=== PATIENT | male | born 1955 | race Caucasian/White ===

== ENCOUNTER 2021-07-30 13:34 | Emergency (ER) | payer MEDICARE ==
[~2021-07-30] VITALS: Ht 185.4 cm; Wt 86.2 kg
[~2021-07-30 13:34] MED LIST: ASCORBIC ACID500 MG PO; ASPIRIN EC81 MG PO; BICALUTAMIDE50 MG PO; CERTAGEN1 EACH PO; FISH OIL 1,2001 EAC2 PO; LIPITOR40 MG PO
[2021-07-30 14:22] LABS: BASOPHIL 0.3 % (0-2); EOSINOPHIL 1.3 % (0-7); HGB 14.6 g/dl (13.2-18.0); MCHC 34.8 g/dL (32.0-36.0); MONOCYTE 9.7 % (0-12); MPV 10.1 fL (6.0-9.5); NEUTROPHIL 76.2 % (41-80); NRBC 0; PLT 181 K/uL (150-400); RBC 4.42 M/uL (4.70-6.00); RDW 12.4 % (11.5-14.0); WBC 9.5 K/uL (4.0-10.5)
[2021-07-30 14:34] LABS: ALBUMIN 3.5 g/dL (3.4-5.0); BILIRUBIN - TOTAL 0.4 mg/dL (0.2-1.0); BUN/CREAT RATIO (CALC) 11.3 RATIO; CREATININE 1.06 mg/dL (0.67-1.17); GLOBULIN (CALCULATION) 3.7 g/dL; POTASSIUM 4.5 mmol/L (3.5-5.1); TOTAL PROTEIN 7.2 g/dL (6.4-8.2)
[2021-07-30] MEDS ORDERED: TESSALON PERLE100 MG PO (16:11)
[2021-07-30] MEDS ORDERED: NORCO 5-325 TA1 EACH PO (16:11)
[2021-07-30] MEDS ORDERED: ZOFRAN4 M1 PO (16:13)
== END 2021-07-30 16:44 | disposition home or self-care (01) ==
LOC: FER 13:34
PROVIDERS: Nurse Practitioner Family
DX: R11.10 Vomiting, unspecified (principal); R52 Pain, unspecified; I10 Essential (primary) hypertension; Z88.8 Allergy status to other drugs, medicaments and biological substances
CPT/HCPCS: 36415; 80053; 85025; J1885; J2405; J7030

== ENCOUNTER 2021-09-09 12:31 | Inpatient (IN) | payer MEDICARE, OTHER ==
[~2021-09-09] VITALS: Ht 183 cm; Wt 73.1 kg
[~2021-09-09 12:31] MED LIST changes: +NORCO 5-325 TA1 EACH PO; +TESSALON PERLE100 MG PO; +ZOFRAN4 M1 PO
[2021-09-09 15:33] LABS: BASOPHIL 0.4 % (0-2); EOSINOPHIL 0.1 % (0-7); HCT 43.3 % (42.0-52.0); HGB 14.5 g/dl (13.2-18.0); LYMPHOCYTE 8.4 % (15-48); MCH 32.1 pg (25.0-31.0); MCHC 33.5 g/dL (32.0-36.0); MCV 95.8 fL (78.0-100.0); MONOCYTE 8.7 % (0-12); MPV 10.9 fL (6.0-9.5); NEUTROPHIL 81.3 % (41-80); NRBC 0; PLT 177 K/uL (150-400); RBC 4.52 M/uL (4.70-6.00); RDW 13.1 % (11.5-14.0); WBC 16.5 K/uL (4.0-10.5)
[2021-09-09 15:41] LABS: INR 1.44 (0.9-1.2); PROTHROMBIN TIME 16.8 SECONDS (11.8-13.4)
[2021-09-09 15:42] LABS: PTT 38.5 SECONDS (24.4-34.7)
[2021-09-09 17:32] LABS: BILIRUBIN NEGATIVE (NEGATIVE); BLOOD NEGATIVE Ery/uL (NEGATIVE); CLARITY CLEAR (CLEAR); COLOR YELLOW (YELLOW); GLUCOSE (U) NORMAL (NORMAL); LEUKOCYTES NEGATIVE Leu/uL (NEGATIVE); NITRITE NEGATIVE (NEGATIVE); PROTEIN NEGATIVE (NEGATIVE); SPECIFIC GRAVITY >=1.030 (1.001-1.030); UROBILINOGEN 0.2 mg/dL (0.2-1.0); pH 5.5 (5.0-9.0)
[2021-09-09 18:02] LABS: LACTIC ACID 2.6 mmol/L (0.4-1.9)
[2021-09-09 19:21] LABS: CREATININE 1.1 mg/dL (0.67-1.17)
[2021-09-09 19:22] LABS: ALBUMIN 3.1 g/dL (3.4-5.0); BILIRUBIN - TOTAL 0.6 mg/dL (0.2-1.0); GLOBULIN (CALCULATION) 3.1 g/dL; TOTAL PROTEIN 6.2 g/dL (6.4-8.2)
[2021-09-09] MEDS ORDERED: GABAPENTIN300 MG PO (22:42)
[2021-09-09] MEDS ORDERED: PRINIVIL10 MG PO (22:46)
[2021-09-09] MEDS ORDERED: ATARAX25 MG PO (22:46)
[2021-09-09] MEDS ORDERED: LUPRON DEPOT45 MG IM/IV (22:48)
[2021-09-09] MEDS ORDERED: SKELAXIN800 MG PO (22:48)
[2021-09-09] MEDS ORDERED: OXY-IR 5MG5 MG PO (22:49)
[2021-09-09] MEDS ORDERED: ELIQUIS5 MG PO ×2 (22:51→22:53)
[2021-09-09] MEDS ORDERED: DOXYCYCLINE HY100 MG PO (22:53)
[2021-09-10 06:13] LABS: BASOPHIL 0.3 % (0-2); EOSINOPHIL 0.6 % (0-7); HCT 35.1 % (42.0-52.0); HGB 11.9 g/dl (13.2-18.0); LYMPHOCYTE 11.2 % (15-48); MCH 32.2 pg (25.0-31.0); MCHC 33.9 g/dL (32.0-36.0); MCV 94.9 fL (78.0-100.0); MONOCYTE 10.8 % (0-12); MPV 10.3 fL (6.0-9.5); NEUTROPHIL 76.2 % (41-80); NRBC 0; PLT 107 K/uL (150-400); RDW 12.9 % (11.5-14.0); WBC 11.3 K/uL (4.0-10.5)
[2021-09-10 06:44] LABS: BUN/CREAT RATIO (CALC) 25.5 RATIO; CREATININE 1.02 mg/dL (0.67-1.17); POTASSIUM 4.8 mmol/L (3.5-5.1)
--- NOTE | 2021-09-10 16:17 | NUR ---
09/10/21 Mr. Velazquez lives at home with his spouse. He had one son who has pasted away. Mr. Velazquez does not use any DME. Pt is currently on . He was dx with prostate cancer 1.5 weeks ago and [facility]. Mr. Velazquez was educated to sources of transportation to his treatment and the [facility]. - Please monitor for home 02 needs.
[2021-09-12 06:56] LABS: BASOPHIL 0.2 % (0-2); EOSINOPHIL 0.6 % (0-7); HCT 35.9 % (42.0-52.0); HGB 11.6 g/dl (13.2-18.0); LYMPHOCYTE 10.5 % (15-48); MCHC 32.3 g/dL (32.0-36.0); MONOCYTE 8.9 % (0-12); MPV 10.9 fL (6.0-9.5); NEUTROPHIL 79.1 % (41-80); NRBC 0; PLT 94 K/uL (150-400); RBC 3.52 M/uL (4.70-6.00); RDW 13.2 % (11.5-14.0); WBC 12.3 K/uL (4.0-10.5)
[2021-09-12 07:11] LABS: BUN/CREAT RATIO (CALC) 15.2 RATIO; CREATININE 1.05 mg/dL (0.67-1.17); POTASSIUM 4.6 mmol/L (3.5-5.1)
--- NOTE | 2021-09-12 18:59 | NUR ---
MESSAGE LEFT WITH DR GRANADOS'S OFFICE ABOUT CONSULT
[2021-09-14 07:28] LABS: BASOPHIL 0.3 % (0-2); EOSINOPHIL 0.6 % (0-7); HCT 36.1 % (42.0-52.0); HGB 11.9 g/dl (13.2-18.0); LYMPHOCYTE 7.8 % (15-48); MCH 31.7 pg (25.0-31.0); MONOCYTE 8.2 % (0-12); MPV 10.8 fL (6.0-9.5); NEUTROPHIL 82.1 % (41-80); NRBC 0; PLT 98 K/uL (150-400); RBC 3.75 M/uL (4.70-6.00); RDW 13.1 % (11.5-14.0); WBC 14.5 K/uL (4.0-10.5)
[2021-09-14 07:29] LABS: MCV 96.3 fL (78.0-100.0)
[2021-09-14 08:04] LABS: BUN/CREAT RATIO (CALC) 15.6 RATIO; CREATININE 0.96 mg/dL (0.67-1.17); POTASSIUM 4.7 mmol/L (3.5-5.1)
--- NOTE | 2021-09-14 17:52 | NUR ---
09/14/2021 A referral was made to [facility] per patient choice. [facility] has recommended SNF. Will have further conversation with patient re: his choices. SNFs will not accept patients receiving chemo or radiation.
[2021-09-15 08:18] LABS: BASOPHIL 0.2 % (0-2); EOSINOPHIL 0.4 % (0-7); HCT 37.7 % (42.0-52.0); HGB 12.5 g/dl (13.2-18.0); LYMPHOCYTE 7.7 % (15-48); MCH 31.6 pg (25.0-31.0); MCHC 33.2 g/dL (32.0-36.0); MCV 95.2 fL (78.0-100.0); MONOCYTE 9.4 % (0-12); MPV 11.3 fL (6.0-9.5); NEUTROPHIL 81.5 % (41-80); NRBC 0; RBC 3.96 M/uL (4.70-6.00); RDW 13.1 % (11.5-14.0); WBC 14.8 K/uL (4.0-10.5)
[2021-09-15 08:19] LABS: PLT 79 K/uL (150-400)
[2021-09-15 09:39] LABS: CREATININE 0.94 mg/dL (0.67-1.17); POTASSIUM 4.7 mmol/L (3.5-5.1)
[2021-09-15 16:03] LABS: HCT 38.3 % (42.0-52.0); HGB 12.9 g/dl (13.2-18.0); MCH 32.2 pg (25.0-31.0); MCHC 33.7 g/dL (32.0-36.0); MCV 95.5 fL (78.0-100.0); MPV 11.4 fL (6.0-9.5); RBC 4.01 M/uL (4.70-6.00); RDW 13.2 % (11.5-14.0); WBC 15.8 K/uL (4.0-10.5)
[2021-09-16 07:54] LABS: BASOPHIL 0.2 % (0-2); EOSINOPHIL 0.1 % (0-7); HCT 40.9 % (42.0-52.0); HGB 13.5 g/dl (13.2-18.0); LYMPHOCYTE 6.6 % (15-48); MCH 31.9 pg (25.0-31.0); MCV 96.7 fL (78.0-100.0); MONOCYTE 9.6 % (0-12); MPV 11.1 fL (6.0-9.5); NEUTROPHIL 82.6 % (41-80); NRBC 0; PLT 94 K/uL (150-400); RBC 4.23 M/uL (4.70-6.00); RDW 13.2 % (11.5-14.0)
[2021-09-16 08:20] LABS: ALBUMIN 2.7 g/dL (3.4-5.0); BILIRUBIN - TOTAL 0.8 mg/dL (0.2-1.0); BUN/CREAT RATIO (CALC) 18.8 RATIO; CREATININE 1.01 mg/dL (0.67-1.17); GLOBULIN (CALCULATION) 3.9 g/dL; POTASSIUM 4.8 mmol/L (3.5-5.1); TOTAL PROTEIN 6.6 g/dL (6.4-8.2)
[2021-09-17 05:58] LABS: BASOPHIL 0.2 % (0-2); EOSINOPHIL 0.2 % (0-7); HCT 38.8 % (42.0-52.0); HGB 12.6 g/dl (13.2-18.0); LYMPHOCYTE 6.5 % (15-48); MCH 31.3 pg (25.0-31.0); MCHC 32.5 g/dL (32.0-36.0); MCV 96.5 fL (78.0-100.0); MONOCYTE 8.1 % (0-12); MPV 10.3 fL (6.0-9.5); NEUTROPHIL 84.2 % (41-80); NRBC 0; PLT 101 K/uL (150-400); RBC 4.02 M/uL (4.70-6.00); RDW 13.2 % (11.5-14.0); WBC 15.4 K/uL (4.0-10.5)
[2021-09-17 06:20] LABS: BUN/CREAT RATIO (CALC) 25.3 RATIO; CREATININE 0.91 mg/dL (0.67-1.17); POTASSIUM 4.4 mmol/L (3.5-5.1)
--- NOTE | 2021-09-17 15:17 | NUR ---
09/17 Patient has experienced a CVA. He declined a feeding tube per Dr. Hinton on 09/16. Per Dr. Anderson's order, a referral was made to Hospice. - Hospice will contact patient's sister, Page Pelletier, . Ms. Pelletier will include patient's spouse Otilia Velazquez in the consultation with Hospice and decision making. - Report given to Dr. Anderson.
[2021-09-18 05:56] LABS: HCT 35.9 % (42.0-52.0); HGB 11.7 g/dl (13.2-18.0); MCH 31.9 pg (25.0-31.0); MCHC 32.6 g/dL (32.0-36.0); MCV 97.8 fL (78.0-100.0); MPV 11.1 fL (6.0-9.5); RBC 3.67 M/uL (4.70-6.00); RDW 13.2 % (11.5-14.0); WBC 12.8 K/uL (4.0-10.5)
[2021-09-18 06:13] LABS: BUN/CREAT RATIO (CALC) 28.6 RATIO; CREATININE 0.84 mg/dL (0.67-1.17); POTASSIUM 4.2 mmol/L (3.5-5.1)
[2021-09-20 05:56] LABS: HCT 37.1 % (42.0-52.0); HGB 11.9 g/dl (13.2-18.0); MCH 31.6 pg (25.0-31.0); MCHC 32.1 g/dL (32.0-36.0); MCV 98.7 fL (78.0-100.0); MPV 10.9 fL (6.0-9.5); RBC 3.76 M/uL (4.70-6.00); RDW 13.2 % (11.5-14.0)
[2021-09-20 06:16] LABS: BUN/CREAT RATIO (CALC) 32.9 RATIO; CREATININE 0.85 mg/dL (0.67-1.17); POTASSIUM 4.8 mmol/L (3.5-5.1)
[2021-09-20 06:17] LABS: INR 1.18 (0.9-1.2); PROTHROMBIN TIME 14.4 SECONDS (11.8-13.4); PTT 57.7 SECONDS (24.4-34.7)
--- NOTE | 2021-09-20 11:28 | NUR ---
1025-HEPARIN GTT STOPPED FOR SX
--- NOTE | 2021-09-20 16:36 | NUR ---
TC TO DANIAL AT [facility]HOSPICE. SHE ADVISED THAT HOSPICE HAS ACCEPTED THE PT. THEY ARE WAITING FOR PT. DISCHARGE. TC TO PT. SISTER AND POA. SHE ADVISED THAT THE FAMILY WANTS PT TO HAVE HOSPICE. ADVISED HER THAT PER PT WOULD BE D/C AFTER PEG TUBE THIS DATE. TC TO DANIAL AT HOSPICE. ADVISED HER THAT FAMILY WANTS THE PEG TUBE FOR COMFORT MEASURES. DANIAL WILL CHECK WITH DR. RODRIGUEZ. RECEIVED CALL FROM PT. SISTER SAY ANDERSON [phone]. SHE LEFT A MESSAGE THAT THE SURGEON SAID THAT IT WOULD BE A COUPLE OF DAYS BEFORE PT WOULD BE DISCHARGED. TC TO MS. LINK AND LEFT MESSAGE. TC TO DANIAL AT HOSPICE. ADVISED THAT PT DID GET THE PEG TUBE. DANIAL IS WORKING ON THE REFERRAL FOR A HOSPITAL BED.
[2021-09-21 03:22] LABS: HCT 39.9 % (42.0-52.0); HGB 12.9 g/dl (13.2-18.0); MCH 31.7 pg (25.0-31.0); MCHC 32.3 g/dL (32.0-36.0); RBC 4.07 M/uL (4.70-6.00); WBC 14.3 K/uL (4.0-10.5)
[2021-09-21 03:43] LABS: BUN/CREAT RATIO (CALC) 36.4 RATIO; CREATININE 0.88 mg/dL (0.67-1.17); POTASSIUM 4.8 mmol/L (3.5-5.1)
--- NOTE | 2021-09-21 08:30 | NUR ---
RSTRAINTS REMOVED R/T PT LETHARGIC, LINES AND TUBES PROTECTED.
--- NOTE | 2021-09-21 12:06 | NUR ---
RETURNED PHONE CALL TO PT SISTER, YVETTE LINK [phone]. ADVISED HER THAT PT. MAY D/C TOMORROW, BUT HAS NOT DECIDED OF YET. SHE WANTED ME TO CALL HOSPICE AND LET THEM KNOW SO THEY CAN DELIVER THE HOSPITAL BED. YVETTE STATED THAT HER SISTER, MATILDA IS ON HER WAY FROM [place] TO CLEAN PT HOUSE FOR THE HOSPITAL BED. I ADVISED HER THAT I WOULD HAVE HOSPICE CALL MATILDA TO MAKE ARRANGEMENTS FOR DELIVERY TIME. TC TO ADAN AT HOSPICE. SHE WILL CONTACT MATILAD. ALSO FAXED ADAN AN ORDER FOR O2. AT [phone].
--- NOTE | 2021-09-21 12:09 | NUR ---
TC FROM PT. SISTER, MADELIN REGARDING TRANSPORATION FOR HER BROTHER. SHE STATED THAT THEY WANT AN AMBULANCE TO TRANSPORT HIM HOME. ADVISED HER THAT THE NURSING STAFF WOULD ARRANGE TRANSPORATION WITH THE AMBULANCE. ADVISED HER THAT PT. MAY HAVE TO SIGN AN ABN FORM TO ASSURE EMS OF PAYMENT. MADELIN STATED THAT HER BROTHER CAN SIGN HIS OWN PAPERWORK. FAXED ORDER FOR O2 TO HOSPICE.
[2021-09-22 06:16] LABS: BASOPHIL 0.4 % (0-2); EOSINOPHIL 0.6 % (0-7); HCT 38.4 % (42.0-52.0); HGB 12.3 g/dl (13.2-18.0); LYMPHOCYTE 8.3 % (15-48); MCH 31.6 pg (25.0-31.0); MCV 98.7 fL (78.0-100.0); MONOCYTE 8.5 % (0-12); MPV 12.2 fL (6.0-9.5); NEUTROPHIL 81.1 % (41-80); NRBC 0; PLT 147 K/uL (150-400); RBC 3.89 M/uL (4.70-6.00); RDW 13.2 % (11.5-14.0); WBC 16.2 K/uL (4.0-10.5)
[2021-09-22 06:31] LABS: BUN/CREAT RATIO (CALC) 36.8 RATIO; CREATININE 0.87 mg/dL (0.67-1.17); POTASSIUM 4.8 mmol/L (3.5-5.1)
[2021-09-22 06:33] LABS: INR 1.27 (0.9-1.2); PROTHROMBIN TIME 15.2 SECONDS (11.8-13.4)
[2021-09-22] MEDS ORDERED: OXY-IR 5MG5 MG PO (10:17)
[2021-09-22] MEDS ORDERED: ASPIRIN EC81 MG PO (10:17)
[2021-09-22] MEDS ORDERED: WARFARIN SODIUM5 MG NG (10:17)
--- NOTE | 2021-09-22 12:43 | NUR ---
SPOKE WITH SISTER, PAULO, . THE HOSPITAL BED AND O2 HAVE BEEN DELIVERED. CALLED WYATT WITH HOSPICE TO ADVISE THAT PT WILL BE DISCHARGING. ALSO, GAVE SHAVONNE BATES'S NUMBER SO THAT SHE MAY CONTACT HER FOR INFORMATION. WYATT ASKED THAT THE NURSE CALL THE HOSPICE OFFICE AND ADVISE WHEN PT LEAVES THE HOSPITAL [phone].
== END 2021-09-22 15:30 | disposition hospice, home (50) | DRG 871 ==
LOC: FER 12:31 → FMS 20:34 → FTCU 20:34
PROVIDERS: Allergy & Immunology Allergy; Emergency Medicine; Hospitalist; Internal Medicine; Nurse Practitioner; Surgery; ADMIT Internal Medicine
PROC: 0DH63UZ Insertion of Feeding Device into Stomach, Percutaneous Approach (ICD-10-PCS; principal; 2021-09-20 12:30)
DX: A41.9 Sepsis, unspecified organism (principal); J18.9 Pneumonia, unspecified organism; I63.9 Cerebral infarction, unspecified; C79.51 Secondary malignant neoplasm of bone; E87.1 Hypo-osmolality and hyponatremia; C78.7 Secondary malignant neoplasm of liver and intrahepatic bile duct; C78.02 Secondary malignant neoplasm of left lung; C78.01 Secondary malignant neoplasm of right lung; R64 Cachexia; G81.94 Hemiplegia, unspecified affecting left nondominant side; R47.01 Aphasia; R65.20 Severe sepsis without septic shock; R29.706 NIHSS score 6; Z20.822 Contact with and (suspected) exposure to COVID-19; Z66 Do not resuscitate; Z51.5 Encounter for palliative care; C61 Malignant neoplasm of prostate; D69.6 Thrombocytopenia, unspecified; R13.10 Dysphagia, unspecified; R47.81 Slurred speech; R29.810 Facial weakness; J43.9 Emphysema, unspecified; E86.0 Dehydration; G89.3 Neoplasm related pain (acute) (chronic); F41.9 Anxiety disorder, unspecified; R11.2 Nausea with vomiting, unspecified; I10 Essential (primary) hypertension; E78.5 Hyperlipidemia, unspecified; Z68.23 Body mass index [BMI] 23.0-23.9, adult; Z88.8 Allergy status to other drugs, medicaments and biological substances; Z79.01 Long term (current) use of anticoagulants; Z79.899 Other long term (current) drug therapy; Z86.711 Personal history of pulmonary embolism; Z87.891 Personal history of nicotine dependence; Y95 Nosocomial condition
CPT/HCPCS: 36415; 70450; 70551; 70553; 71045; 71250; 80048; 80053; 80061; 81003; 83605; 84145; 85025; 85610; 85730; 87040; 94010; 94640; 94668; 97162; 97166; 97530-GP; 97535; A9579; J0694; J1170; J1200; J1644; J2405; J2543; J2704; J7030; J7120; J7512; U0002